=== PATIENT | female | born 1965 | race Caucasian/White ===

== ENCOUNTER 2019-06-17 20:22 | Emergency (ER) | payer OTHER ==
[~2019-06-17] VITALS: Ht 157.5 cm; Wt 102.1 kg
[2019-06-17] MEDS ORDERED: AVAPRO300 MG (20:38)
[2019-06-18] MEDS ORDERED: LEVSIN/SL0.125 MG SL (02:26)
[2019-06-18] MEDS ORDERED: CIPRO500 MG PO (02:26)
== END 2019-06-18 02:31 | disposition home or self-care (01) ==
LOC: ER 20:22
DX: K57.90 Diverticulosis of intestine, part unspecified, without perforation or abscess without bleeding (principal)